=== PATIENT | male | born 1990 | race Caucasian/White ===

== ENCOUNTER 2024-03-16 19:27 | Emergency (ER) | payer MEDICAID ==
[~2024-03-16] VITALS: Ht 182.9 cm; Wt 75.0 kg
[2024-03-16 19:38] VITALS: O2SAT 100
[2024-03-16] MEDS: IBUPROFEN 800MG TABLET PO ONE (20:38)
[2024-03-16] MEDS: KETOROLAC 60MG/2ML VIAL IM ONE (20:43)
[2024-03-16] MEDS ORDERED: NAPR500T7 MT (20:50)
[2024-03-16 20:57] VITALS: BP 138/79; PULSE 87; RESP 16; TEMP 98.3
== END 2024-03-16 21:00 | disposition home or self-care (01) ==
LOC: ER 19:27
DX: M79.641 Pain in right hand (principal); Z88.0 Allergy status to penicillin
CPT/HCPCS: 99283; 73130; 29125; 96372; J1885